=== PATIENT | male | born 1985 | race African-American/Black ===

== ENCOUNTER 2021-08-30 12:48 | Inpatient (IN) | payer OTHER ==
[2021-08-30 13:19] VITALS: BMI 25.8
[2021-08-30] MEDS ORDERED: ACETAMINOPHEN 325 MG TABLET (FP) PO PRN ×2 (14:30)
[2021-08-30] MEDS ORDERED: MAGNESIUM HYDROX 2400MG/30ML ORAL SUSPENSION 30 ML CUP PO PRN (14:30)
[2021-08-30] MEDS ORDERED: BENZOCAINE/MENTHOL (CHLORASEPTIC ) LOZENGE MM PRN (14:30)
[2021-08-30] MEDS ORDERED: IBUPROFEN 600 MG TABLET (FP) PO PRN (14:30)
[2021-08-30] MEDS ORDERED: DICYCLOMINE HCL 10 MG CAPSULE PO PRN (14:30)
[2021-08-30] MEDS ORDERED: chlordiazePOXIDE HCL 25 MG CAPSULE PO PRN (14:30)
[2021-08-30] MEDS ORDERED: NICOTINE POLACRILEX 2 MG GUM BUC PRN (14:30)
[2021-08-30] MEDS ORDERED: ONDANSETRON *ODT* 4 MG TABLET SL PRN (14:30)
[2021-08-30] MEDS ORDERED: LOPERAMIDE HCL 2 MG CAPSULE PO PRN (14:30)
[2021-08-30] MEDS ORDERED: BISMUTH SUBSALICYLATE 524 MG/30 ML PO PRN (14:30)
[2021-08-30] MEDS ORDERED: MAGNESIUM CITRATE 300 ML BOTTLE PO PRN (14:30)
[2021-08-30] MEDS ORDERED: NICOTINE 10 MG CARTRIDGE (INHALER) IH PRN (14:30)
[2021-08-30] MEDS ORDERED: MAG HYDROX/AL HYDROX/SIMETH 30 ML UNIT-DOSE CUP PO PRN (14:30)
[2021-08-30] MEDS ORDERED: METHOCARBAMOL 500 MG TABLET PO PRN (14:30)
[2021-08-30] MEDS ORDERED: IBUPROFEN 400 MG TABLET (FP) PO PRN (14:30)
[2021-08-30] MEDS: hydrOXYzine PAMOATE 25 MG CAPSULE (FP) PO SCH ×2 (17:40→22:19)
[2021-08-30] MEDS: NICOTINE 21 MG/24 HOURS TOPICAL PATCH TD SCH (17:40)
[2021-08-30] MEDS: chlordiazePOXIDE HCL 25 MG CAPSULE PO SCH ×2 (17:41→22:20)
[2021-08-30] MEDS ORDERED: MELATONIN 5 MG TABLETS PO SCH (22:00)
[2021-08-30] MEDS ORDERED: THIAMINE HCL 100 MG TABLET (FP) PO SCH (22:00)
[2021-08-31] MEDS: chlordiazePOXIDE HCL 25 MG CAPSULE PO SCH ×2 (05:38→10:25)
[2021-08-31] MEDS: hydrOXYzine PAMOATE 25 MG CAPSULE (FP) PO SCH ×2 (05:39→10:25)
[2021-08-31 09:10] VITALS: BP 120/65; PULSE 88; TEMP 97.3
[2021-08-31] MEDS ORDERED: PRENATAL VITAMINS W/ FOLIC ACID TABLET (FP) PO SCH (10:00)
[2021-08-31] MEDS: NICOTINE 21 MG/24 HOURS TOPICAL PATCH TD SCH (10:25)
[2021-08-31 11:56] LABS: HEMOGLOBIN 14.5 GM/dL (11.7-16.9); MCH 31.1 pg (25.7-33.7); MCHC 34.6 g/dl (32.0-35.9); MEAN PLT VOLUME 7.5 fl (7.5-11.1); PLATELET COUNT 207 10^3/uL (134-434); RBC 4.67 M/mm3 (4.00-5.60); RDW 13.1 % (11.9-15.9); WHITE BLOOD COUNT 3.4 K/mm3 (4.0-10.0)
[2021-08-31 12:04] LABS: CALCIUM 8.9 mg/dL (8.5-10.1)
[2021-08-31 12:05] LABS: ALBUMIN 3.4 g/dl (3.4-5.0); BLOOD UREA NITROGEN 8.7 mg/dL (7-18)
[2021-08-31 12:08] LABS: CREATININE 0.8 mg/dL (0.55-1.3)
[2021-08-31 12:09] LABS: BILIRUBIN,TOTAL 0.4 mg/dL (0.2-1); TOT PROT 6.3 g/dl (6.4-8.2)
[2021-09-01] MEDS ORDERED: chlordiazePOXIDE HCL 25 MG CAPSULE PO SCH (05:00)
[2021-09-02] MEDS ORDERED: chlordiazePOXIDE HCL 10 MG CAPSULE PO PRN
[2021-09-02] MEDS ORDERED: chlordiazePOXIDE HCL 10 MG CAPSULE PO SCH (05:00)
[2021-09-03] MEDS ORDERED: chlordiazePOXIDE HCL 10 MG CAPSULE PO SCH (05:00)
[2021-09-04] MEDS ORDERED: chlordiazePOXIDE HCL 10 MG CAPSULE PO ONE (05:00)
== END 2021-08-31 11:22 | disposition left against medical advice (07) | DRG 774 ==
LOC: YASAS 12:48 → Y3N 15:21
PROVIDERS: ADMIT Allergy & Immunology; ATTEND Surgery
PROC: HZ2ZZZZ Detoxification Services for Substance Abuse Treatment (ICD-10-PCS; principal; 2021-08-30)
DX: F10.230 Alcohol dependence with withdrawal, uncomplicated (principal); F14.20 Cocaine dependence, uncomplicated; F12.20 Cannabis dependence, uncomplicated; F17.210 Nicotine dependence, cigarettes, uncomplicated; F43.10 Post-traumatic stress disorder, unspecified; F90.9 Attention-deficit hyperactivity disorder, unspecified type; S26.1 Injury of heart without hemopericardium; W26.9XXD Contact with unspecified sharp object(s), subsequent encounter
CPT/HCPCS: 36415; 80053; 85027; 86593; 86780; C9803-CS; U0003; U0005